=== PATIENT | female | born 1995 | race Caucasian/White ===

== ENCOUNTER 2025-03-03 02:45 | Inpatient (IN) | payer BC, OTHER, SELFPAY ==
[2025-03-03] VITALS (135 sets, daily range): BP systolic 92–225; BP diastolic 49–205; PULSE 37–180; RESP 18; TEMP 36.3–37.2; O2SAT 84–100; BMI 37.8
--- OUTSIDE RECORDS SUMMARY | 2025-03-03 03:19 | XMS_ITS | Data Portability ---
Author Organization [facility] Address [address] [place] [address] Assessment Encounter Date Assessment Date Assessment LastModified by Organization Details LastModified Time 02/20/2025 02/20/2025 Patient is __36_weeks . Discussed plan. Not available 02/20/2025 10:33:59 02/27/2025 02/27/2025 Patient is _36__weeks . Discussed plan. [email or web address] Not available 02/27/2025 12:37:21 Plan of Treatment Reminders Order Date Submit Date Provider Last Modified By Organization Details Last Modified Time Details Appointments U/S OB BPP 2024 08:30A M ULTRASOUND Not available Not available Not available NST 2024 09:00A M NST SCHEDULE Not available Not available Not available OB ROUTINE 2024 09:30A M Lisa Miguel CNM Not available Not available Not available U/S OB BPP 2024 08:00A M ULTRASOUND Not available Not available Not available NST 2024 08:30A M NST SCHEDULE Not available Not available Not available OB ROUTINE 2024 09:00A M Lisa Miguel CNM Not available Not available Not available SURG CSectio n 2024 07:30A Dara RUELAS MD Not available Not available Not available SURG POST OP 2024 01:30P Dara RUELAS MD Not available Not available Not available Lab None recorde d. Referral None recorde d. Procedures None recorde d. Surgeries None recorde d. Imaging non-str ess test 2024 025 [email or web address] [address], [address], [place], [address], 02/28/2025 08:38:25 US, obstetr ic, biophys ical profile + non-str ess test 2024 025 [email or web address] [place], [address], [place], [address], 02/27/2025 22:02:45 US, obstetr ic, follow- up 2024 025 [email or web address] [place], [address], [place], [address], 02/09/2025 17:42:59 Medication Orders None recorde d. Patient TargetsNo targets recorded. Patient InstructionsNo instructions recorded. Reason for Referral None Reported. Results Created Date Observation Date Name Description Value Unit Range Abnormal Flag Note LastModifiedBy Organization Detail LastModifiedTime 02/21/2002/20/2025 CULTU RE: GROUP B STREP SCREE N, REFLE X SUSCE PTIBI LITY result report SEE RESULT S BELOW Test: Cultu re: Group B Strep , Refle x Susce ptibi lity ([facility] ) Speci men Sourc e: Vagin a/Rec page Speci men Type: Vagin al/Re ctal Speci men Date: 1006 Resul t Date: 1356 Resul t Statu s: Final resul t Abnor mal: No Resul ting Lab: [facility] [address] [facility] [address] Tel: CULTU RE ----- ----- ----- --- No Group B strep isola roque at 2 days (jennifer ctive broth enhan cemen t) Not Available [facility] (Lab) [address], [place], [address], 02/23/2025 14:59:46 02/10/20 02/09/2025 US, obste tric, follo w-up No observ ation record ed. [email or web address] [place] [address], [place], [address], 02/09/2025 13:30:13 02/10/20 25 02/09/2025 US, obste tric, follo w-up No observ ation record ed. [address], [place], [address], 02/20/2025 17:08:37 02/28/2002/27/2025 US, obste tric, follo w-up No observ ation record ed. [email or web address] [address], [place], [address], 03/01/2025 11:29:31 02/28/20 25 02/27/2025 US, obste tric, bioph ysica l profi le + non-s tress test No observ ation record ed. [email or web address] [place] [address], [place], [address], 02/27/2025 12:02:49 02/28/2002/27/2025 non-s tress test No observ ation record ed. [email or web address] [place] [address], [place], [address], 02/27/2025 13:59:00 02/28/20 non-s tress test No observ ation record ed. [place] [address], [place], [address], 02/27/2025 14:02:00 Result Notes None recorded. Problems Name Problem SNOMED Code Status Onset Date Resolution Date Notes Provider Name and Address Organization Details Recorded Time Mixed anxiety and depressiv e disorder 312109094 Active 2023 Catherine Marcelino [facility] [place] - [facility] 4 15:29:10 50768983 Active 2023 Catherine christiansen, [facility] 4 15:34:55 Infection by Trichomon as 53168462 Active tx flagyl 09/08/24 Lisa Miguel CNM [address], [place], [address], [facility] 4 15:40:31 Anxiety 89558870 Active wellbutri n 300mg daily Lisa Miguel CNM [address], [place], [address], [facility] 5 14:40:32 Low lying placenta 071497704 Active pelvic rest, [facility] LIZY BREWER MD [address], [place], [address], [facility] 5 23:59:28 Body mass index 30+ - obesity 626835083 Active antental testing @ 37wks Rossana Lee [facility], [facility] 5 16:03:02 Body mass index 30+ - obesity 856309687 Active antental testing @ 37wks [facility] 16:03:01 Problem Notes None recorded. Procedures Surgical History Date Name Laterality Status Provider Name and Address Organization Details Recorded Time 4 Date of Last Pap Smear completed Catherine Marcelino [facility] 09/08/2024 15:29:26 2 Other completed Catherine Marcelino [facility] 09/08/2024 15:33:49 1 Breast Surgery completed Catherine Marcelino [facility] 09/08/2024 15:28:05 1 Breast Biopsy completed Catherine Marcelino [facility] 09/08/2024 15:28:05 8 extraction of wisdom tooth completed Catherine Marcelino [facility] 09/08/2024 15:34:03 Imaging Results Imaging Date Name Status LastModified by Organiz ation Details LastModified Time 02/09/2025 US, obstetric, follow-up completed [facility] [place] [address], [place], [address], 02/09/2025 13:30:13 02/09/2025 US, obstetric, follow-up completed [email or web address] [address], [place], [address], 02/20/2025 17:08:37 02/27/2025 US, obstetric, follow-up completed [email or web address] [address], [place], [address], 03/01/2025 11:29:31 02/27/2025 US, obstetric, biophysical profile + non-stress test completed [facility] [place] [address], [place], [address], 02/27/2025 12:02:49 02/27/2025 non-stress test completed [email or web address] [place] [address], [place], [address], 02/27/2025 13:59:00 02/27/2025 non-stress test completed [email or web address] [place] [address], [place], [address], 02/27/2025 14:02:00 Procedure Notes None recorded. Medical Equipment None Reported. Allergies No known drug allergies Medications Name Sig Start Date Stop Date Status Note LastModified by Organization Details LastModified Time fluconazole 150 mg tablet TAKE 1 TABLET BY MOUTH NOW. REPEAT IN 7 DAYS IF SYMPTOMS PERSIST 09/08 completed Not Available Not Available Not Available ondansetron HCl 4 mg tablet 01/10 completed Not Available Not Available Not Available metronidazo le 500 mg tablet take 4 tabs once 11/01 completed Not Available Not Available Not Available alprazolam 0.25 mg tablet 09/08 completed Not Available Not Available Not Available sertraline 25 mg tablet 09/08 completed Not Available Not Available Not Available mupirocin 2 % topical ointment APPLY TOPICALLY TO THE AFFECTED AREA THREE TIMES DAILY active Not Available Not Available No t Available methylpredn isolone 4 mg tablets in a dose pack FOLLOW PACKAGE DIRECTION S 09/08 completed Not Available Not Available Not Available phentermine 37.5 mg capsule 09/08 completed Not Available Not Available Not Available amoxicillin 875 mg-potassiu m clavulanate 125 mg tablet TAKE 1 TABLET BY MOUTH TWICE DAILY FOR 10 DAYS active Not Available Not Available No t Available cholecalcif fantasma (vitamin D3) 25 mcg (1,000 unit) capsule TAKE 1 CAPSULE BY MOUTH DAILY 09/08 completed Not Available Not Available Not Available escitalopra m 20 mg tablet 09/08 completed Not Available Not Available Not Available cyclobenzap rine 5 mg tablet 09/08 completed Not Available Not Available Not Available bupropion HCl XL 300 mg 24 hr tablet, extended release TAKE 1 TABLET BY MOUTH EVERY DAY active Not Available Not Available No t Available bupropion HCl XL 150 mg 24 hr tablet, extended release TAKE 1 TABLET BY MOUTH EVERY DAY 01/24 completed Not Available Not Available Not Available Tri-Sprinte c (28) 0.18 mg(7)/0.215 mg(7)/0.25 mg(7)-0.035 mg tablet TAKE 1 TABLET BY MOUTH EVERY DAY 09/08 completed Not Available Not Available Not Available 28 mg iron-800 mcg tablet TAKE 1 TABLET BY MOUTH EVERY DAY active Not Available Not Available No t Available Zepbound 5 mg/0.5 mL subcutaneou s pen injector ADMINISTE R 5 MG UNDER THE SKIN EVERY 7 DAYS 09/08 completed Not Available Not Available Not Available Zepbound 2.5 mg/0.5 mL subcutaneou s pen injector ADMINISTE R 2.5 MG UNDER THE SKIN EVERY 7 DAYS 09/08 completed Not Available Not Available Not Available Vitals Date Recorded Body weight Body mass index (BMI) Body height Systolic blood pressure Diastolic blood pressure Provider Name and Address Organization Details Last Updated DateTime 02/09/2025 64829.32 14 g 37.2 kg/m2 163.83 cm 114 mm[Hg] 79 mm[Hg] Catherine Marcelino [facility] 5 11:38:22 Date Recorded Body weight Body mass index (BMI) Body height Systolic blood pressure Diastolic blood pressure Provider Name and Address Organization Details Last Updated DateTime 02/20/2025 469741.6 9088 g 37.9 kg/m2 163.83 cm 119 mm[Hg] 79 mm[Hg] Catherine Marcelino [facility] 5 10:33:23 Date Recorded Body weight Body mass index (BMI) Body height Body height Body mass index (BMI) Body weight Systolic blood pressure Diastolic blood pressure Systolic blood pressure Diastolic blood pressure Provider Name and Address Organization Details Last Updated DateTime 5 796590. 27620 g 37.5 kg/m2 163.83 cm 163.83 cm 37.5 kg/m2 249675. 51 g 108 mm[Hg] 70 mm[Hg] 108 mm[Hg] 70 mm[Hg] Catherine Marcelino [facility] 13:57:27 Social History Question Answer Notes LastModified by Organizat ion Details LastModified Time Tobacco Smoking Status Never Smoker Catherine Marcelino [facility], [facility] 09/08/2024 15:33:04 If You Are , What Was Your Level Of Alcohol Consumption Prior To ? Occasional [email or web address] Information not available 09/08/2024 Are You Blind Or Do You Have Difficulty Seeing? No [email or web address] Information n ot available 09/08/2024 What Is Your Level Of Caffeine Consumption? Moderate [email or web address] Information not available 09/08/2024 In The 14 Days Before Symptom Onset, Have You Had Close Contact With A Laboratory-confirm ed COVID-19 While That Case Was Ill? No [email or web address] Information n ot available 09/08/2024 In The 14 Days Before Symptom Onset, Have You Had Close Contact With A Person Who Is Under Investigation For COVID-19 While That Person Was Ill? No [email or web address] Information not available 09/08/2024 Have You Been To An Area Known To Be High Risk For COVID-19? No [email or web address] Information not available 09/08/2024 Are You Deaf Or Do You Have Serious Difficulty Hearing? No [email or web address] Information not available 09/08/2024 What Type Of Diet Are You Following? REGULAR [email or web address] Information n ot available 09/08/2024 Do You Use Your Seat Belt Or Car Seat Routinely? Yes [email or web address] Information not available 09/08/2024 Do You Have Smoke And Carbon Monoxide Detectors In Your Home? Yes [email or web address] Information not available 09/08/2024 Do You Use Sunscreen Routinely? Yes [email or web address] Information not available 09/08/2024 Has Tobacco Cessation Counseling Been Provided? No [email or web address] Information not available 09/08/2024 Do You Have Difficulty Walking Or Climbing Stairs? No Information not available 09/08/2024 Sex: Unknown Functional Status Question Answer Note LastModified by Organizat ion Details LastModified Time Do you use any illicit or recreational drugs? No [email or web address] Information not available 09/08/2024 Do you or have you ever used any other forms of tobacco or nicotine? No [email or web address] Information not available 09/08/2024 What is your level of alcohol consumption? None Information not available 09/08/2024 Are you able to walk? YESWOREST Information not available 09/08/2024 Are you able to care for yourself? Yes [email or web address] Information n ot available 09/08/2024 Do you have difficulty dressing or bathing? No [email or web address] Information not available 09/08/2024 What is your exercise level? Occasional [email or web address] Information not available 09/08/2024 Mental Status Question Answer Note LastModified by Organization D etails LastModified Time Do you feel stressed (tense, restless, nervous, or anxious, or unable to sleep at night)? [id number] [email or web address] Information not available 09/08/2024 Family History Nothing Reported. Medical History Condition Response Allergies (Food, seasonal, environmental ) N Other N Drug/Latex Allergies/Reactions N Blood Transfusion N Breast Cancer N Dermatologic Disorders N Lung Disease N Defects or Inherited Disease N Breast Problem Y Gestational Diabetes N Hematologic disorders N Anesthesia Complications N History of STI Y Deep Vein Thrombosis N Polycystic ovary syndrome N Anxiety Disorder Y Autoimmune disease N Arthritis N Polyps N Infertility N Acid Reflux (GERD) N History of abnormal pap N Cancer N Varicosities N Stroke N Neurologic/Epilepsy N Endometriosis N High Cholesterol N Fibromyalgia N Headaches N Kidney Disease N Heart Problems N Thyroid Problems N Kidney or Bladder Problems N GI Problems N Eating Disorder N Anemia N Art (IVF or FET) N Psychiatric Illness N Ovarian Cancer N Diabetes N Pulmonary (TB, Asthma) N Hepatitis/Liver Disease N No Past Medical History N Eczema N Urinary Tract Infection N Abuse/Domestic Violence N Asthma N Trauma/Violence N Depression/ depression Y Heart Disease N Pre-Eclampsia N Hypertension N Osteoporosis N Thrombophilias N Gynecological History Statement/Question Response Abnormal Pap N Date of Last Colonoscopy Date of Last Mammogram Date of LMP 06/16/2024 STIs/STDs Y Date of DEXA bone scan Date of Last Pap Smear 03/30/2024 Current Control Method LMP Approximate Obstetrics History GPAL:G 1 P 0 0 0 0 Type Value Living 0 Total 1 Past Encounters Encounter ID Performer Location Encounter Start Date Encounter Closed Date Diagnosis/Indication Diagnosis SNOMED-CT Code Diagnosis ICD10 Code Diagnosis Note [id number] Frank Ruelas MD [place] [address] [address] 09/08/2024 12:03:21 09/08/2024 13:52:13 screening 896561397 Z36.87 Z3A.12 [id number] [facility] [address] [address] 09/08/2024 14:35:51 09/08/2024 15:47:58 Infection by Trichomonas 83302343 A59.9 Mixed anxi ety and depressive disorder 673984540 F41.8 Gestation period, 12 weeks 02061524 Z3A.12 [id number] Frank Ruelas MD [place] [address] [address] 09/19/2024 12:21:50 09/19/2024 13:25:59 screening 555409962 Z36.82 Z3A.13 [id number] [facility] [address],[place] [address] 10/06/2024 11:49:41 10/06/2024 12:40:39 Gestation period, 16 weeks 88585333 Z3A.16 [id number] Frank Ruelas MD [place] [address],[place] [address] 11/01/2024 11:23:36 11/01/2024 12:36:16 screening for malformation 761479206 Z36.3 Z3A.19 [id number] [facility] [address],[place] [address] 11/01/2024 11:23:53 11/01/2024 14:12:12 Gestation period, 19 weeks 66940822 Z3A.19 [id number] Frank Ruelas MD [place] [address],[place] [address] 11/29/2024 10:55:08 11/29/2024 12:03:03 Low lying placenta 867274054 O44.42 O35.8XX0 Z3A.23 [id number] LIZY BREWER MD [place] [address],[place] [address] 11/29/2024 10:55:21 11/30/2024 09:40:05 Routine care 051742568 Z34.02 [id number] LIZY BREWER MD [place] [address],[place] [address] 12/18/2024 13:52:43 12/18/2024 15:13:47 Irregular uterine contractions 39106622 O62.2 - worsening since Wednesday- no bleeding- good movement- likely growing pains vs BH contractio ns- no signs of PTL on exam- will send urine to r/o UTI- will measure for belly band today [id number] [facility] [address],[place] [address] 12/27/2024 09:34:49 12/27/2024 10:05:44 Gestation period, 27 weeks 04546162 Z3A.27 [id number] Lisa Miguel [facility] [address],[place] [address] 01/10/2025 09:55:55 01/10/2025 10:38:19 Gestation period, 29 weeks 17053333 Z3A.29 Anxiety 40674027 F41.9 [id number] Lisa Miguel [facility] [address],[place] [address] 01/24/2025 14:07:06 01/24/2025 14:44:26 Gestation period, 31 weeks 07108974 Z3A.31 [id number] Frank Ruelas MD [place] [address],[place] [address] 02/09/2025 11:07:11 02/09/2025 11:43:11 Obesity 453595149 O99.213 O36.63X0 Z3A.34 [id number] Lisa Miguel [facility] [address],[place] [address] 02/09/2025 11:07:32 02/12/2025 00:49:08 Gestation period, 34 weeks 39961536 Z3A.34 [id number] Lisa Miguel [facility] [address],[place] [address] 02/20/2025 10:10:27 02/20/2025 11:16:34 Gestation period, 36 weeks 74817821 Z3A.36 [id number] Frank Ruelas MD [place] [address],[place] [address] 02/27/2025 10:53:16 02/27/2025 11:51:10 Obesity 616170689 O99.210 Z3A.36 [id number] Lisa Miguel [facility] [address],[place] [address] 02/27/2025 10:53:41 02/27/2025 14:15:49 Body mass index 30+ - obesity 737565206 E66.9 [id number] Lisa Miguel, [facility] [address] [address] 02/27/2025 10:53:51 02/27/2025 12:38:19 Gestation period, 36 weeks 18333949 Z3A.36 Health Concerns Section Related Observation LastModified by Organization Detai ls LastModified Time None Recorded Concern Status LastModified by Organization Details LastModified Time None Recorded Advance Directives Directive None Recorded Payers Encounter Date Sequence Insurance Name Policy Number Policy [place] Covered Member ID [place] Member ID Guarantor Name 02/09/2025 2 R [id number] Efren Carroll [id number] Tarah Carroll 02/09/2025 1 [place] [id number] Tarah Carroll [id number] Tarah Carroll 02/20/2025 2 R [id number] Efren Carroll [id number] Tarah Carroll 02/20/2025 1 [place] [id number] Tarah Carroll [id number] Tarah Carroll 02/27/2025 2 R [id number] Efren Carroll [id number] Tarah Carroll 02/27/2025 1 [place] [id number] Tarah Carroll [id number] Tarah Carroll 02/27/2025 2 R [id number] Efren Carroll [id number] Tarah Carroll 02/27/2025 1 [place] [id number] Tarah Carroll [id number] Tarah Carroll 02/27/2025 2 R [id number] Efren Carroll [id number] Taarh Carroll 02/27/2025 1 [place] [id number] Tarah Carroll [id number] Tarah Carroll OBGyn Episode Ob Episode Information Episode Created Date Number of Fetuses Patient Bloodtype Patient rh Status Prepregnancy Weight lbs Domestic Partner Domestic Partner Phone Father Name Dietary Cook Status 09/08/20 24 1 O Positive Vito Carroll OPEN Fetus Data First Name Last Name Admitted to NICU Weight (g) Sex Living Outcome Pediatric Complications Fetus ID Race Codes Race Delivery Type [id number] Problems Problem Notes EIF seen in [facility] us at 3 2wks Problem Name Start Date End Date Resolution Snomed Code Not e Infection by Trichomonas [id number] tx flagyl 09/08 Anxiety 89808651 wellbutrin 300mg daily Body mass index 30+ - obesity 116776427 antental testin g @ 37wks Chad Calculation Initial Chad Date Initial Exam Date Initial Exam Provider Initial Ultrasound Date Last Menstrual Period Date Ultra Sound Weeks Gestation 03/23/2025 08/18/2024 08/18/2024 06/16/2024 9 Eighteen To Twenty Week Chad Update Ultra Sound Date Fundal Height At Umbil Quickening Date Ultra Sound Latest Weeks Gestation Final Chad Confirmed By Final Chad Confirmed Date Final Chad Date Ultra Sound Latest Days Gestation 0 0 Pre-harris Flowsheet Flowsheet Date 09/08/2024 Raymundo Score Blood Edema Fundus Height Fundus Units Glucose Ketones Leukocytes Nitrite Labor Signs Protein Cervic Dilation Cervic Effacement Cervic Station neg none Type Weight in lbs Pre/Post Dialysis Refused Weight 212.626658514643 BP Diastolic BP Location Tested BP Systolic BP Type 85 120 Fetus Heart Rate Present Fetus Movement A No Comments transfer of care, previous o ffice would not treat trich until 12 weeks, called to pharmacy, was treated. stopped her wellbutrin did not wean, office wanted her to start sertraline did not start. wellbutrin works great and she had been doing well on it , discussed risk with , risk of untreated anxiety/depression. will restart wellbutrin at 150mg and increase in 4 weeks as needed.reviewed records, begin routine care Flowsheet Date 09/19/2024 Raymundo Score Blood Edema Fundus Height Fundus Units Glucose Ketones Leukocytes Nitrite Labor Signs Protein Cervic Dilation Cervic Effacement Cervic Station Type Weight in lbs Pre/Post Dialysis Refused BP Diastolic BP Location Tested BP Systolic BP Type Fetus Heart Rate Present Fetus Movement Comments Flowsheet Date 10/06/2024 Raymundo Score Blood Edema Fundus Height Fundus Units Glucose Ketones Leukocytes Nitrite Labor Signs Protein Cervic Dilation Cervic Effacement Cervic Station neg none Type Weight in lbs Pre/Post Dialysis Refused 210.544867471004 BP Diastolic BP Location Tested BP Systolic BP Type 85 L arm 126 sitting Fetus Heart Rate Present A 156 Present Fetus Movement A No Comments Patient c/o of having a lot of lower pressure and cramping. discussed signs and sxs, will yuko for trich, increased anxiety at work, does not want to increase wellbutrin yet will discuss after anatomy scan f/u 4 weeks Flowsheet Date 11/01/2024 Raymundo Score Blood Edema Fundus Height Fundus Units Glucose Ketones Leukocytes Nitrite Labor Signs Protein Cervic Dilation Cervic Effacement Cervic Station Type Weight in lbs Pre/Post Dialysis Refused BP Diastolic BP Location Tested BP Systolic BP Type Fetus Heart Rate Present Fetus Movement Comments Flowsheet Date 11/01/2024 Raymundo Score Blood Edema Fundus Height Fundus Units Glucose Ketones Leukocytes Nitrite Labor Signs Protein Cervic Dilation Cervic Effacement Cervic Station neg none Type Weight in lbs Pre/Post Dialysis Refused 211.111803111204 BP Diastolic BP Location Tested BP Systolic BP Type 72 120 Fetus Heart Rate Present Fetus Movement A No Comments LLP reviewed US, precautions and education, f/u 4 weeks Flowsheet Date 11/29/2024 Raymundo Score Blood Edema Fundus Height Fundus Units Glucose 696565|[id number]|2025-03-03 18:55:00|2025-03-03 18:55:00|OBPPTRN||||"Patient transferred to post room #111 via w/c. Support person present. Oriented to unit, room, information board, rooming in, admission packet and security measures. Patient verbalizes understanding."
--- OUTSIDE RECORDS SUMMARY | 2025-03-03 03:19 | XMS_ITS | Clinical Summary ---
Author Organization [facility] Address [address] [place] [address] Phone Care Team Providers Care President & Ceo Name Role Phone Yoan Davis APRN, CNP, Shayla Unavailable Leonora Coulter APRN, SHON Primary Care Provide r Allergies No known active allergies Medications Norgestimate-Et hinyl Estradiol 0.18/0.215/0.25 MG-35 MCG Tablet Take 1 Tablet by mouth daily. Active Semaglutide-Doug ght Management (Wegovy) 0.25 MG/0.5ML Solution Auto-injector 0.25 mg by Subcutaneous route once a week. 2 mL 1 3 Active escitalopram (LEXAPRO) 20 MG TabletIndicatio ns:Anxiety TAKE 1 TABLET BY MOUTH EVERY DAY 90 Tablet 3 Active Active Problems Problem Noted Date Diagnosed Date Adjustment disorder 06/23/2022 Positive ERUM (antinuclear antibody) 05/01/2022 Cyst of right ovary 05/01/2022 Anxiety 02/24/2022 Facial rash 02/24/2022 LLQ abdominal pain 02/24/2022 Constipation 02/24/2022 Rosacea 02/24/2022 Immunizations Immunization Administration Dates Next Due DTAP VACCINE 06/03/2001,07/15/1998 DTP-Hib 1997,1997,1997 Hepatitis A Vaccine, Pediatric/adolescent, 2 Dose Schedule 05/15/2011 Hepatitis A Vaccine,unspecif ied Formulation 05/13/2007 Hepatitis B Vaccine, Pediatric/adolescent 1997,1997,1997 Hib Vaccine,unspecified Formulation 07/15/1998 Human Papillomavirus Vaccine (HPV), quadrivalent 05/15/2011 Inactivated Polio Vaccine 06/03/2001 Influenza Vaccine greater than 3 yrs 12/16/2014 Influenza Vaccine,unspecifie d Formulation 10/07/2009 Influenza, Seasonal, Injecta ble, Undefined 12/16/2014 MMR Vaccine 06/03/2001,05/03/1998 Meningococcal Polysaccharide Vaccine (MPSV4) 05/15/2011 Novel [id number], Injectable 10/07/2009 OPV 07/15/1998, 7,1997,06/13 TDAP Vaccine 05/15/2011 Family History Medical History Relation Name Comments Heart Attack Father Hypertension Mother Heart Attack Paternal Grandfather Pacemaker Paternal Grandmother Other-comment Paternal Uncle enlarged hea rt Relation Name Status Comments Father Alive Maternal Grandfather Maternal Grandmother Alive Mother Alive Paternal Grandfather Alive Paternal Grandmother Alive Paternal Uncle Social History Tobacco Use Types Packs/Day Years Used Date Smoking Tobacco: Never Smokeless Tobacco: Never Tobacco Cessation:Counseling Given: Not Answered Alcohol Use Standard Drinks/Week Comments Not Currently 0 (1 standard drink = 0.6 oz pur e alcohol) PHQ-2 Answer Date Recorded Total Score - Questions 1-9 0 0 03/2022 Sexually Active Control Partners Comments Yes Oral Contraceptive Comments No Sex and Gender Information Value Date Recorded Sex Assigned at Not on file Legal Sex Female 10:05 PM CDT Gender Identity Not on file Sexual Orientation Not on file Last Filed Vital Signs Vital Sign Reading Time Taken Comments Blood Pressure 120/70 11/02/2022 11:06 AM LUMP RECEIVER Pulse 100 11/02/2022 11:06 AM LUMP RECEIVER Temperature 36.4 C (97.5 F) 11/02/2022 11:06 AM LUMP RECEIVER Respiratory Rate 16 11/02/2022 11:06 AM LUMP RECEIVER Oxygen Saturation 98% 11/02/2022 11:06 AM LUMP RECEIVER Inhaled Oxygen Concentration - - Weight 96.6 kg (213 lb) 11/02/2022 11:06 AM LUMP RECEIVER Height 162.6 cm (5' 4 ) 11/02/2022 11:06 AM LUMP RECEIVER Body Mass Index 36.56 11/02/2022 11:06 AM LUMP RECEIVER Plan of Treatment Health Maintenance Due Date Last Done Comments Hepatitis C Virus (HCV) Screening 1997 Pap Smear 11/18/2023 11/18/2020 Respiratory Syncytial Virus (RSV) Immunization (Adult) (1 - 1-dose 75+ series) 2072 Hepatitis B Immunization Completed 997, 1997, 1997 DTaP/Tdap/Td Immunization Discontinued 2010, 06/03/2001, 07/15/1998, Additional history exists Human Papillomavirus (HPV) Immunization Discontinued 05/15/2011 Meningococcal Immunization (ACWY) Aged Out 05/15/2011 No longer eligible based on patient's age to complete this topic Influenza Immunization Discontinued 5, 12/16/2014, 10/07/2009, Additional history exists Pneumococcal Immunization Combined Aged Out No longer eligible based on patient's age to complete this topic Rotavirus Immunization Aged Out No lo nger eligible based on patient's age to complete this topic SARS-COV-2 Immunization Discontinued Goals Goal Patient Goal Type Associated Problems Recent Progress Patient-Stated? Author To try to think more positive Behavioral Health Yes Livia Myers, PROGRAMMER OPERATOR NUMERICAL CONTROL Note: Goal/Objective: Decrease anxiety. Anticipated Time Frame for Goal Completion: 4 months Goal Reviewed with: patient Readiness to change: Ready to change Department associated with goal: [facility] Steps to achieve goal: will identify at least two coping skills/activities/habits that have helped to manage anxiety in the past. will identify at least three new coping skills/activities/habits that may help to prevent and/or cope with anxiety. 3. will identify a plan to implement coping skills and follow this plan for two weeks and evaluate the impact on anxiety 4. Will attend individual and/or group therapy at least 1x/month at least 6 sessions Insurance [facility] Care Teams President & Ceo Relationship Specialty Start Date End Date Leonora Coulter APRN, STATISTICAL MACHINE SERVICER [address] [place] [address] PCP - General Advanced Practice Nurse 11/29/24 Shayla Milton V COMPUTER FORWARDING SYSTEM MARKUP CLERK, STATISTICAL MACHINE SERVICER [address] [place] [address] [place] [address] Advanced Practice Nurse 07/28/21
--- OUTSIDE RECORDS SUMMARY | 2025-03-03 03:19 | XMS_ITS | Encounter Summary ---
Author Organization [facility] Address [address] [place] [address] Phone Care Team Providers Care Development Advisor Name Role Phone Yoan Davis APRN, SHON, Shayla Unavailable [phone] Sadia Medel MD Primary Care Provider + [phone] Mercedes Hutchison MD Primary Care Provider + [phone] Leonora Coulter APRN, CONSTRUCTION TRENCH DIGGER Primary Care Provide r Reason for Visit * Reason Comments Medication Refill Encounter Details Date Type Department Care Team (Late st Contact Info) Description 05/23/[address] [facility] - Primary Care - [place] [address] [place] [address] Sadia Medel MD [address] [place] [address] Medication Refill Social History Tobacco Use Types Packs/Day Years Used Date Smoking Tobacco: Never Smokeless Tobacco: Never Alcohol Use Standard Drinks/Week Comments Not Currently 0 (1 standard drink = 0.6 oz pur e alcohol) PHQ-2 Answer Date Recorded Total Score - Questions 1-9 0 07/18 Sexually Active Control Partners Comments Yes Oral Contraceptive Comments No Sex and Gender Information Value Date Recorded Sex Assigned at Not on file Legal Sex Female 10:05 PM CDT Gender Identity Not on file Sexual Orientation Not on file COVID-19 Exposure Response Date Recorded In the last 10 days, have yo u been in contact with someone who was confirmed or suspected to have Coronavirus/COVID-19? No / Unsure 05/01/2022 10:57 AM CDT documented as of this encounter Miscellaneous Notes * Telephone Encounter - Ariana Arroyo RN - 05/25/2022 9:00 AM CDT Dose adjustment 05/01/2022 documented in this encounter Plan of Treatment Not on file documented as of this encounter Visit Diagnoses Diagnosis Anxiety Anxiety state, unspecified documented in this encounter Additional Health Concerns Assessment Noted Time PHQ-9 Depression Total Score: 0 07/28/20 21 12:00 PM CDT documented as of this encounter Care Teams Development Advisor Relationship Specialty Start Date End Date Sadia Medel MD [address] [place] [address] PCP - General Family Medicine 02/24/22 11/02/22 Mercedes Hutchison MD [address] [place] [address] PCP - General Family Medicine 11/03/22 11/28/24 Leonora Coulter, DATAPOWER CONSULTANT, CONSTRUCTION TRENCH [place] [address] PCP - General Advanced Practice Nurse 11/29/24 Shayla Milton V, DATAPOWER CONSULTANT, CONSTRUCTION TRENCH DIGGER [place] [address] Advanced Practice Nurse 07/28/21 documented as of this encounter
--- OUTSIDE RECORDS SUMMARY | 2025-03-03 03:19 | XMS_ITS | Clinical Summary ---
Author Organization [facility] Address [address] [place] [address] Care Team Providers Care Field Account Manager Name Role Phone Leonora Coulter NP Primary Care Provider [phone] Allergies No known active allergies Medications sertraline (ZOLOFT) 25 mg tablet Take 1 tablet (25 mg total) by mouth daily 90 tablet 4 Active PNV cmb 52-oaxd-DA-omeg a-3-dha 29 mg iron- 1 mg-200 mg combo pack Take by mouth Ac tive buPROPion XL (WELLBUTRIN XL) 300 mg 24 hr tablet 5 Active mupirocin (BACTROBAN) 2 % ointmentIndicat ions:Minor Bacterial Skin Infections Apply topically 3 (three) times a day 22 g 5 Active amoxicillin-cla vulanate (AUGMENTIN) 875-125 mg per tablet Take 1 tablet by mouth 2 (two) times a day for 10 days 20 tablet 5 02/28/20 25 Active Problems Problem Noted Date Diagnosed Date KEY (generalized anxiety disorder) 02/11/2024 Assessment & Plan (07/20/2024 3:34 PM CDT): Patient is currently ; would like to change medications to floor risk medication for Discussed with patient risks and benefits of treatment with SSRI; patient has agreeable to continue; will start sertraline 25 mg daily, adjust dose every 7-14 days as needed Assessment & Plan (04/12/2024 2:46 PM CDT): Chronic, stable, well controlled Weaned herself off Lexapro Continue Wellbutrin 300 mg daily Assessment & Plan (02/11/2024 8:20 AM CDT): Chronic, stable, currently well controlled Has not taken any Xanax Is doing well on Lexapro; would like to increase Wellbutrin Continue Lexapro 20 mg daily and increase Wellbutrin 300 mg daily Follow up 2 months Recurrent major depressive disorder, in remiss n 10/11/2022 Assessment & Plan (04/12/2024 2:46 PM CDT): Chronic, stable, well controlled Weaned herself off Lexapro Continue Wellbutrin 300 mg daily Assessment & Plan (02/11/2024 8:21 AM CDT): Chronic, stable, currently well controlled Has not taken any Xanax Is doing well on Lexapro; would like to increase Wellbutrin Continue Lexapro 20 mg daily and increase Wellbutrin 300 mg daily Follow up 2 months Class 2 obesity due to exces s calories with body mass index (BMI) of 39.0 to 39.9 in adult 10/11/2022 Assessment & Plan (04/12/2024 2:47 PM CDT): Continues to struggle with weight loss Has tried Wellbutrin and Phentermine Continue making healthy dietary choices and exercise Zepbound 2.5 mg SubQ weekly Anxiety 02/24/2022 Estimated Date of Delivery Comme nts Yes 03/23/2025 Resolved Problems Problem Noted Date Diagnosed Date Resolved Date Cellulitis of buttock 01/20/20232023 Open wound of genital labia 11/05/2022 11/10/2022 Abscess packing removal 10/29/2022 04/0 02/2023 Assessment & Plan (10/29/2022 10:22 AM FIELD ADJUSTER): Packing removed will be replaced by after shower at home rtc next week Abscess of genital labia 10/12/202209/2023 Assessment & Plan (10/22/2022 11:17 AM FIELD ADJUSTER): Continue 10/21 packing, nearly healed rtc next week Cellulitis of other specified site 10/11/2022 10/22/2022 Elevated blood pressure read ing without diagnosis of hypertension 10/11/2022 12/22/2023 Hypokalemia 10/11/2022 12/22/2023 Bacteriuria 10/11/2022 12/22/2023 Lupus 10/11/2022 12/22/2023 Encounters Date Type Department Care Team Description 03/01/2025 Telephone [facility] [address] [place] [address] Leonora Coulter NP Referral Request 02/17/2025 11:15 AM CDT Office Visit [facility] [address] [facility] [place] [address] Pia Givens NP Need for Tdap vaccination (Primary Dx); Bacterial skin infection from Last 3 Months Immunizations Immunization Administration Dates Next Due DTP / HiB 1997,1997,1997 DTaP 06/03/2001,07/15/1998 H1N1 Inj 10/07/2009 HPV, Quadrivalent 05/15/2011 Hep A, Pediatric 05/15/2011 Hep A, Unspecified 05/13/2007 Hep B, Adolescent or Pediatric 1997,1996,1997 HiB 07/15/1998 IPV 06/03/2001 Influenza, Trivalent, IM (MDV) 12/16/2014 Influenza, Unspecified 07/20/2024(Deferr ed: Patient Refused),01/17/2024(Deferred: Patient Refused),08/19/2023(Deferred: Patient Refused),08/19/2023(Deferred: Patient Refused),07/18/2023(Deferred: Patient Refused),07/18/2022(Deferred: Patient Refused),07/18/2022(Deferred: Patient Refused),07/18/2022(Deferred: Patient Refused),12/16/2014,10/07/2009, 009,05/13/2007,07/15/1998 MMR 06/03/2001,05/03/1998 Meningococcal Polysaccharide (Menomune) 05/15/2011 OPV 07/15/1998, 7,1997,06/13 Tdap 02/17/2025,05/15/2011 Surgical History Surgery Date Site/Laterality Comments BREAST BIOPSY 01/15/2021 Right BREAST EXCISIONAL BIOPSY 03/12/2021 Right Fibroadenoma ABCESS DRAINAGE 10/18/2021 - 10/17/2022 Left thigh- started as a pimple and then abcess Medical History Medical History Date Comments Breast lump right Lupus Encounter for recheck of abs cess following incision and drainage 10/13/2022 LEFT LABIA Abscess of left genital labia 10/12/2022 Abscess of genital labia 10/12/2022 Open wound of genital labia 11/05/2022 Abscess packing removal 10/29/2022 07/17/2024 Family History Medical History Relation Name Comments Diabetes Father Heart disease Father Diabetes Mother Hypertension Mother Obesity Mother Relation Name Status Comments Father Alive Mother Alive Social History Tobacco Use Types Packs/Day Years Used Date Smoking Tobacco: Never Smokeless Tobacco: Never Tobacco Cessation:Counseling Given: Not Answered AUDIT-C Answer Date Recorded Q1: How often do you have a drink containing alc ohol? Never 10/11/2022 Average Number of Drinks Not on file 022 Q3: How often do you have si x or more drinks on one occasion? Never 10/11/2022 PHQ-2 Answer Date Recorded PHQ-2 Total Score (If total score is 3 or more points, staff should administer the PHQ-9) 0 04/12/2024 Personal Safety Answer Date Recorded Getting School Help Needed Denies 09/28 Estimated Date of Delivery Comme nts Yes 03/23/2025 Sex and Gender Information Value Date Recorded Sex Assigned at Not on file Legal Sex Female 1:58 PM FIELD ADJUSTER Gender Identity Female 07/14/2022 9:03 AM CDT Sexual Orientation Not on file Obstetrics History Para Term AB IAB SAB Ectopic Multiple Livin g Live Births 1 Date Outcome GA Total Labor Labor/2nd/3rd Weight Sex Type Anes PTL Yanet A1 A5 Name Clin Current Last Filed Vital Signs Vital Sign Reading Time Taken Comments Blood Pressure 118/80 02/17/2025 11:55 AM CDT Pulse 106 02/17/2025 11:55 AM CDT Temperature 36.8 C (98.2 F) 02/17/2025 11:55 AM CDT Respiratory Rate 22 02/17/2025 11:55 AM CDT Oxygen Saturation 98% 02/17/2025 11:55 AM CDT Inhaled Oxygen Concentration - - Weight 101.2 kg (223 lb) 02/17/2025 11:55 AM CDT Height 165.1 cm (5' 5 ) 02/17/2025 11:55 AM CDT Body Mass Index 37.11 02/17/2025 11:55 AM CDT Plan of Treatment Health Maintenance Due Date Last Done Comments Cervical Cancer Screening 1997 Varicella Vaccines (1 of 2 - 13+ 2-dose series) 2010 HPV Vaccines (2 - 2-dose series) 11/15/2011 05/15/2011 Regular Well Visit/Exam 18-64 2015 Depression Screening 04/12/2025 04/12/2024, 02/11/2024, 12/22/2023, Additional history exists Influenza Vaccine (Season Ended) 2025 12/16/2014, 12/16/2014, 10/07/2009, Additional history exists DTaP/Tdap/Td Vaccine (8 - Td or Tdap) 02/17/2035 02/17/2025, 05/15/2011, 06/03/2001, Additional history exists Hepatitis B Screening Completed 1997 , 1997, 1997 Hepatitis C Screening Completed 03/20/2024 Pneumococcal vaccine <65 Aged Out No longer eligible based on patient's age to complete this topic Medical Devices Implanted Type Area Assignment Manager Device Identifier Shelf Expiration Date Model / Serial / Lot Bard Peripheral Vascular [id number] Ultraclip Bard 17ga 10cm 2 Trigger Permanent Ultrasound - [id number] - [id number] Implanted:Qty: 1 on 01/15/2021 by Rudi Smith MD at [facility] Breast Right: Breast [employer] Peripheral V[employer] 06/14/2023 [id number] / [id number] / Procedures Procedure Name Priority Date/Time Associated Diagnosis Comments HEPATITIS C ANTIBODY Routine 03/20/2024 8:56 AM CDT Need for hepatitis C screening test from Last 3 Months or Most Recently Relevant to Health Maintenance Results * Hepatitis C antibody Blood (03/20/2024 8:56 AM CDT) Hep C Ab Nonreactive Nonreactive Comment: Interpretive Data Nonreactive: Antibodies to HCV not detected. Does NOT exclude the possibility of recent exposure to HCV. Equivocal: Equivocal for HCV antibodies. Supplemental molecular testing will be automatically performed to determine infection status in accordance with current CDC screening recommendations. Reactive: Positive for HCV antibodies. This may represent current or past HCV infection. Supplemental molecular testing will be automatically performed to determine current infection status in accordance with current CDC screening recommendations. Interpretive data was last revised on 2020. Testing performed by: [facility], [address] [place] [address]., [id number] Blood 03/20/2024 8:56 AM CDT 03/20/2024 12:42 PM CDT Leonora Coulter NP LAB MICROBIOLOGY - GENERAL ORDER CARLOS Final Result Performing Organization Address City/State/[facility] Co de Phone Number [facility] ([place]) [address] [facility] Department [place] [address] from Last 3 Months or Most Recently Relevant to Health Maintenance Insurance [employer] [place] [facility] Address: [address] [place] [address] [place] [address] Advance Directives For more information, please contact: [phone] * Full Code (Latest Code Status on File) Date Activated Date Inactivated Comments 10/11/2022 8:18 PM 10/14/2022 4:06 PM Healthcare Agents on File Name Relationship Healthcare Agent [facility] p Communication Bruce Carroll Spouse First Alternate Health Care Agent [email or web address] Care Teams Field Account Manager Relationship Specialty Start Date End Date Leonora Coulter NP PCP - General Family Medicine 02/16/23
--- OUTSIDE RECORDS SUMMARY | 2025-03-03 03:19 | XMS_ITS | Encounter Summary ---
Author Organization [facility] Address [address] [place] [address] Phone Care Team Providers Care Automotive Fuel Injection Servicer Name Role Phone Yoan Davis APRN, SHON, Shayla Unavailable Sadia Medel MD Primary Care Provider + [phone] Mercedes Hutchison MD Primary Care Provider + [phone] Leonora Coulter APRN, CHEF INSTRUCTOR Primary Care Provide r Reason for Visit * Reason Comments Medication Refill Encounter Details Date Type Department Care Team (Late st Contact Info) Description 07/28/2022 Refill [facility] - Primary Care - [place] [address] [place] [address] Sadia Medel MD [address] [place] [address] Medication Refill Social History Tobacco Use Types Packs/Day Years Used Date Smoking Tobacco: Never Smokeless Tobacco: Never Alcohol Use Standard Drinks/Week Comments Not Currently 0 (1 standard drink = 0.6 oz pur e alcohol) PHQ-2 Answer Date Recorded Total Score - Questions 1-9 0 09/0 03/2022 Sexually Active Control Partners Comments Yes Oral Contraceptive Comments No Sex and Gender Information Value Date Recorded Sex Assigned at Not on file Legal Sex Female 10:05 PM CDT Gender Identity Not on file Sexual Orientation Not on file documented as of this encounter Miscellaneous Notes * Telephone Encounter - Ariana Arroyo RN - 07/28/2022 7:56 AM CDT Medication failed the protocol, provider to review and approve the medication order if appropriate. Requested Prescriptions Pending Prescriptions Disp Refills escitalopram (LEXAPRO) 10 MG Tablet [Pharmacy Med Name: ESCITALOPRAM 10 MG TABLET] 90 Tablet 0 Sig: TAKE 1 TABLET BY MOUTH EVERY DAY SSRI (6 Month Refill Only) Protocol Failed - 07/28/2022 12:38 AM Failed - Patient has established therapy with SSRI for at least 6 months Passed - No test in the past 12 months or most recent test was negative Passed - No active on record Passed - Visit with relevant provider in past 6 months or upcoming 90 days Recent Visits Date Type Provider Dept 05/01/22 Office Visit Sadia Medel MD [facility] 02/24/22 Office Visit Sadia Medel MD [facility] Showing recent visits within past 182 days and meeting all other requirements Future Appointments No visits were found meeting these conditions. Showing future appointments within next 90 days and meeting all other requirements Passed - Has an encounter in the past 6 months with a depression, anxiety, adjustment disorder, OCD, or PTSD visit diagnosis documented in this encounter Plan of Treatment Not on file documented as of this encounter Goals Goal Patient Goal Type Associated Problems Recent Progress Patient-Stated? Author To try to think more positive Behavioral Health Yes Livia Myers, MASTER PLUMBER Note: Goal/Objective: Decrease anxiety. Anticipated Time Frame for Goal Completion: 4 months Goal Reviewed with: patient Readiness to change: Ready to change Department associated with goal: [facility] Steps to achieve goal: [...] at least 1x/month at least 6 sessions documented as of this encounter Visit Diagnoses Diagnosis Anxiety Anxiety state, unspecified documented in this encounter Additional Health Concerns Assessment Noted Time PHQ-9 Depression Total Score: 0 07/28/20 21 12:00 PM CDT documented as of this encounter Care Teams Automotive Fuel Injection Servicer Relationship Specialty Start Date End Date Sadia Medel MD [address] [place] [address] PCP - General Family Medicine 02/24/22 11/02/22 Mercedes Hutchison MD [address] [place] [address] PCP - General Family Medicine 11/03/22 11/28/24 Leonora Coulter, SALES HUNTER, CHEF INSTRUCTOR [address] [place] [address] PCP - General Advanced Practice Nurse 11/29/24 Shayla iMlton V, SALES HUNTER, CHEF INSTRUCTOR [address] [place] [address] [address] [place] [address] Advanced Practice Nurse 07/28/21 documented as of this encounter
--- OUTSIDE RECORDS SUMMARY | 2025-03-03 03:19 | XMS_ITS | Referral Summary ---
Author Organization [facility] Address [address] [place] [address] Care Team Providers Care Humanities Department Chair Name Role Phone Leonora Coulter NP Primary Care Provider [phone] Encounters Date Type Department Care Team Description 03/01/2025 Telephone Family Physicians [address] [address] Leonora Coulter NP Referral Request 02/17/2025 11:15 AM CDT Office Visit [facility] at [address] [place] [address] Pia Givens NP Need for Tdap vaccination (Primary Dx); Bacterial skin infection from Last 3 Months Allergies No known active allergies Medications sertraline (ZOLOFT) 25 mg tablet Take 1 tablet (25 mg total) by mouth daily 90 tablet 4 Active PNV cmb [id number] a-3-dha 29 mg iron- 1 mg-200 mg [...] a day for 10 days 20 tablet 02/28/20 25 Active Problems Problem Noted Date [...] 02/2023 Assessment & Plan (10/29/2022 10:22 AM ASSISTANT PORTFOLIO MANAGER): Packing removed will be replaced by after shower at home rtc next week Abscess of genital labia 10/12/202209/2023 Assessment & Plan (10/22/2022 11:17 AM ASSISTANT PORTFOLIO MANAGER): Continue 10/21 packing, nearly healed rtc next week Cellulitis of other specified site 10/11/2022 10/22/2022 Elevated blood pressure read ing without diagnosis of hypertension 10/11/2022 12/22/2023 Hypokalemia 10/11/2022 12/22/2023 Bacteriuria 10/11/2022 12/22/2023 Lupus 10/11/2022 12/22/2023 Immunizations Immunization Administration Dates Next Due DTP [...] (Menomune) 05/15/2011 OPV 07/15/1998, 7,1997,06/13 Tdap 02/17/2025,05/15/2011 Social History Tobacco Use Types Packs/Day Years [...] on file Legal Sex Female 1:58 PM ASSISTANT PORTFOLIO MANAGER Gender Identity Female 07/14/2022 9:03 AM CDT Sexual Orientation Not on file Last Filed [...] 02/17/2025 11:55 AM CDT Plan of Treatment Not on file Medical Devices Implanted Type Area Camera Supervisor Device Identifier Shelf Expiration Date Model / Serial / Lot Bard Peripheral Vascular [id number] Ultraclip Bard 17ga 10cm 2 Trigger Permanent Ultrasound - [id number] - [id number] Implanted:Qty: 1 on 01/15/2021 by Rudi Smith MD at [facility] Breast Right: Breast [employer] Peripheral V[employer] 06/14/2023 [id number] / [id number] / Procedures Procedure Name Priority Date/Time Associated [...] last revised on 2020. Testing performed by: [facility], [address] [place] [address]., [id number] Blood 03/20/2024 8:56 AM CDT 03/20/2024 12:42 PM CDT us Leonora Coulter NP LAB MICROBIOLOGY - GENERAL ORDER CARLOS Final Result [facility] ([place]) [address] [facility] [place] [address] from Last 3 Months or Most Recently Relevant to Health Maintenance Insurance [facility] [employer] [facility] Advance Directives For more information, please contact: [phone] * Full Code (Latest Code Status on File) Date Activated Date Inactivated Comments 10/11/2022 8:18 PM 10/14/2022 4:06 PM Healthcare Agents on File Name Relationship [facility] [place] Spouse First Alternate Health Care Agent [email or web address] om Care Teams Humanities Department Chair Relationship Specialty Start Date End Date Leonora Coulter NP PCP - General Family Medicine 02/16/23
--- OUTSIDE RECORDS SUMMARY | 2025-03-03 03:19 | XMS_ITS | Data Portability ---
Author Organization [facility] Address [address] [place] [address] Assessment Encounter Date Assessment Date Assessment LastModified by Organization Details LastModified Time 08/01/2024 08/01/2024 see ob episode. fernstrn Not available 08/01/2024 16:54:09 08/22/2024 08/22/2024 see OB episode fernstrn Not available 08/22/2024 10:40:05 Plan of Treatment Reminders Order Date Submit Date Provider Last Modified By Organization Details Last Modified Time Details Appointments None record ed. Lab urinal ysis, dipsti ck 2023 024 [email or web address] In-Office Order, Internal Use Only DO Not Attach Compendium DO Not Attach Compendium, Do Not Delete/merge, [id number] 10:23:32 CBC w/ auto diff 2023 024 [facility], [address] [place] [address], [place], [address], 4 07:15:49 RPR (rapid plasma reagin ), serum 2023 024 [facility], [address] [place] [address] 2, [place], [address], 4 07:15:55 rubell a IgG Ab, quant immuno assay, serum or plasma 2023 024 [facility], [address] [place] [address] 2, [place], [address], 4 07:15:53 HBsAg (hepat itis B surfac e Ag), EIA, serum 2023 024 [facility], [facility] [address], [address], [place], [address], 4 07:15:54 abo group + rh type, blood 2023 024 [facility], [facility], [address], [place], [address], 4 07:15:51 antibo dy screen , serum or plasma 2023 024 [facility], [facility], [address], [place], [address], 4 07:15:50 HIV 1 + 2, meanin gful use set 2023 024 [facility], [facility], [address], [place], [address], 4 07:15:57 drug screen , urine 2023 024 You.i, [facility], [address], [place], [address], 4 07:15:47 hemogl obin (Hb) electr ophore sis, blood 2023 024 You.i, [facility], [address], [place], [address], 4 07:15:41 varice lla zoster virus IgG Ab, QL, IA, serum 2023 024 [facility], [address], [place], [address], 4 07:15:59 cultur e, urine 2023 024 [facility], [facility], [address], [place], [address], 4 07:16:31 Hepati tis C IgG Ab, qual, serum 2023 [facility], [address] [facility], [address], [place], [address], 4 07:15:43 unlist ed lab - inheri test(R )CF / sma panel 2023 [facility], [address], [place], [address], 4 07:15:46 chlamy zoran tracho matis + neisse burke gonorr hoeae + tricho monas vagina lis rRNA panel, MARC+pr obe 2023 [facility], [address], [place], [address], 4 07:15:04 TSH + free T4, serum 2023 [facility], [address], [place], [address], 4 07:15:45 vitami n D, 25-hyd rufino, total, serum 2023 [facility], [address], [place], [address], 4 07:15:56 pregna ncy test, urine 2023 024 fernstrn In-Office Order, Internal Use Only DO Not Attach Compendium DO Not Attach Compendium, Do Not Delete/merge, [id number] 4 16:33:56 urinal ysis, dipsti ck 2023 024 fernstrn In-Office Order, Internal Use Only DO Not Attach Compendium DO Not Attach Compendium, Do Not Delete/merge, [id number] 4 16:33:57 HCG, intact + beta subuni t, quant, serum or plasma 2023 024 [facility], [address], [place], [address], 4 16:16:14 urinal ysis, dipsti ck 2023 024 bl[facility] In-Office Order, Internal Use Only DO Not Attach Compendium DO Not Attach Compendium, Do Not Delete/merge, [id number] 4 11:35:42 pregna ncy test, urine 2023 024 [facility] In-Office Order, Internal Use Only DO Not Attach Compendium DO Not Attach Compendium, Do Not Delete/merge, [id number] 4 11:35:44 vagina l pathog ens panel, MARC+pr obe, vagina l fluid 2023 024 [facility], [address], [place], [address], 4 16:14:28 cytolo gy report , thin prep, smear or scrapi ng, cervic al or vagina l - brush and broom 2023 024 [facility], [address], [place], [address], 4 16:25:46 Referral None record ed. Procedures None record ed. Surgeries None record ed. Imaging US, obstet juan miguel, 1st trimes ter 2023 024 KAYY Alvarado [facility] Scheduling, [address] [place], [address], 4 15:35:54 US, pelvis , transa bdomin al + transv aginal 2023 024 blake Alvarado [facility] Scheduling, [address] [place], [address], 4 14:10:25 US, pelvis , transa bdomin al + transv aginal 2022 023 theresaneftali [place] [facility] (Radiology), [address] [facility] [place], [address], 4 10:22:55 Medication Orders Prenat al 28 mg iron-8 00 mcg tablet 2023 024 [id number], [address], [place], [place], [id number], 4 12:49:48 ketoco nazole 2 % topica l cream 2022 023 [facility] #[id number], [address], [place], [place], [id number], 4 12:54:06 Tri Femyno r (28) 0.18 mg(7)/ 0.215 mg(7)/ 0.25 mg(7)- 35 mcg tablet 2022 023 [email or web address] [id number], [address], [place], [place], [id number], 4 12:25:14 Patient TargetsNo targets recorded. Patient Instructions Encounter Date Encounter Id Patient Instructions Last Modified By Organization Details Last Modified Time 05/24/2023 [id number] A healthy lifestyle: care instructions fernstrn Not available 05/24/2023 10:19:05 12/27/2023 [id number] A healthy lifestyle: care instructions fernstrn Not available 12/27/2023 12:53:14 Reason for Referral None Reported. Results Created Date Observation Date Name Description Value Unit Range Abnormal Flag Note LastModifiedBy Organization Detail LastModifiedTime 03/30/20 24 04/01/2024 NUSWA B VAGIN ITIS PLUS (VG+) atopobium vaginae MODERA TE - 1 score Not Available [facility] ([facility]) [address] [facility], [place], [address], 04/01/2024 16:14:28 03/30/20 24 04/01/2024 NUSWA B VAGIN ITIS PLUS (VG+) bvab 2 LOW - 0 score Not Available [facility] ([facility]) [address] [facility], [place], [address], 04/01/2024 16:14:28 03/30/20 24 04/01/2024 NUSWA B VAGIN ITIS PLUS (VG+) megasphaera 1 LOW - 0 score Calcu late total score by azael bonner the 3 indiv idual bacte rial vagin osis (BV) marke r score s toget her. Total score is inter prete d as follo ws: Total score 0-1: Indic ates the absen ce of BV. Total score 2: Indet ermin ate for BV. Addit ional clini ken data shoul d be evalu ated to estab gatito a diagn osis. Total score 3-6: Indic ates the prese nce of BV. Not Available [facility] ([facility]) [address] [facility], [place], [address], 04/01/2024 16:14:28 03/30/20 24 04/01/2024 NUA B VAGIN ITIS PLUS (VG+) devon albicans, MARC NEGATI VE negati ve Not Available [facility] ([facility]) [address] [facility], [place], [address], 04/01/2024 16:14:28 03/30/20 24 04/01/2024 NUSWA B VAGIN ITIS PLUS (VG+) devon glabrata, MARC NEGATI VE negati ve Not Available [facility] ([facility]) [address] [facility], [place], [address], 04/01/2024 16:14:28 03/30/20 24 04/01/2024 NUSWA B VAGIN ITIS PLUS (VG+) trich vag by MARC NEGATI VE negati ve Not Available [facility] ([facility]) [address] [facility], [place], [address], 04/01/2024 16:14:28 03/30/20 24 04/01/2024 NUSWA B VAGIN ITIS PLUS (VG+) chlamydia trachomatis, MARC NEGATI VE negati ve Not Available [facility] ([facility]) [address] [facility], [place], [address], 04/01/2024 16:14:28 03/30/20 24 04/01/2024 NUSWA B VAGIN ITIS PLUS (VG+) neisseria gonorrhoeae, MARC NEGATI VE negati ve Not Available [facility] ([facility]) [address] [facility], [place], [address], 04/01/2024 16:14:28 03/30/20 24 03/31/2024 IGP, APTIM A HPV, RFX 16/18 ,45 HPV aptima NEGATI VE negati ve This nucle ic acid ampli ficat ion test detec ts fourt een high- risk HPV types (16,1 8,31, 33,35 ,39,4 5,51, 52,56 ,58,5 9,66, 68) witho ut diffe renti ation . Not Available [facility] ([facility]) [address] [facility], [place], [address], 04/04/2024 16:25:46 03/30/20 24 04/04/2024 IGP, APTIM A HPV, RFX 16/18 ,45 diagnosis: COMMEN T NEGAT TITI FOR INTRA EPITH ELIAL LESIO N OR MALIG ARIE . CELLU MAMIE HILARIO ES ASSOC IATED WITH INFLA MMATI ON ARE PRESE NT. THIS SPECI MEN WAS RESCR EENED PART OF OUR QUALI TY CONTR OL PROGR AM. Not Available [facility] ([facility]) [address] [facility], [place], [address], 04/04/2024 16:25:46 03/30/20 24 04/04/2024 IGP, APTIM A HPV, RFX 16/18 ,45 specimen adequacy: ANGEL Smith Satis facto ry for evalu ation . Endoc ervic al and/o r squam ous metap lasti c cells (endo cervi ken compo nent) are prese nt. Not Available [facility] ([facility]) [address] [facility], [place], [address], 04/04/2024 16:25:46 03/30/20 24 04/04/2024 IGP, APTIM A HPV, RFX 16/18 ,45 clinician provided ICD10: ANGEL Smith Z12.4 R10.2 Not Available [facility] ([facility]) [address] [facility], [place], [address], 04/04/2024 16:25:46 03/30/20 24 04/04/2024 IGP, APTIM A HPV, RFX 16/18 ,45 performed by: ANGEL Mack , Cytot echno logis t (ASCP ) Not Available [facility] ([facility]) [address] [place], [address], 04/04/2024 16:25:46 03/30/20 24 04/04/2024 IGP, APTIM A HPV, RFX 16/18 ,45 QC reviewed by: ANGEL weber, Cytot echno logis t (ASCP ) Not Available [facility] ([facility]) [address] [place], [address], 04/04/2024 16:25:46 03/30/20 24 04/04/2024 IGP, APTIM A HPV, RFX 16/18 ,45 . . Not Available [facility] ([facility]) [address] [place], [address], 04/04/2024 16:25:46 03/30/20 24 04/04/2024 IGP, APTIM A HPV, RFX 16/18 ,45 note: COMMEN T The Pap smear is a scree jacquie test desig kevin to aid in the detec tion of daisy ligna nt and malig nant condi tions of the uteri ne cervi x. It is not a diagn ostic proce dure and shoul d not be used as the sole means of detec ting cervi ken cance r. Both false -posi tive and false -nega tive repor ts do occur . Not Available [facility] ([facility]) [address] [facility], [place], [address], 04/04/2024 16:25:46 03/30/20 24 04/04/2024 IGP, APTIM A HPV, RFX 16/18 ,45 test methodology: COMM T This liqui d based ThinP rep(R ) pap test was scree kevin with the use of an image guide anupama gaston. Not Available [facility] ([facility]) [address] [facility], [place], [address], 04/04/2024 16:25:46 03/30/20 24 04/04/2024 IGP, APTIM A HPV, RFX 16/18 ,45 HPV genotype reflex COMM T Crite burke not met, HPV Genot ype not perfo rmed. Not Available [facility] ([facility]) [address] [place], [address], 04/04/2024 16:25:46 03/30/20 24 03/30/2024 urina lysis , dipst ick Leukocytes Negati ve Not Available In-Office Order Internal Use Only DO Not Attach Compendium DO Not Attach Compendium, Do Not Delete/merge, 03/30/2024 11:34:28 03/30/20 24 03/30/2024 urina lysis , dipst ick Nitrite negati ve Not Available In-Office Order Internal Use Only DO Not Attach Compendium DO Not Attach Compendium, Do Not Delete/merge, 03/30/2024 11:34:28 03/30/20 24 03/30/2024 urina lysis , dipst ick Urobilinogen .2 Not Available In-Of fice Order Internal Use Only DO Not Attach Compendium DO Not Attach Compendium, Do Not Delete/merge, 03/30/2024 11:34:28 03/30/20 24 03/30/2024 urina lysis , dipst ick Protein Negati ve Not Available In-Office Order Internal Use Only DO Not Attach Compendium DO Not Attach Compendium, Do Not Delete/merge, 03/30/2024 11:34:28 03/30/20 24 03/30/2024 urina lysis , dipst ick pH 5.5 Not Available In-Office Order Internal Use Only DO Not Attach Compendium DO Not Attach Compendium, Do Not Delete/merge, 03/30/2024 11:34:28 03/30/20 24 03/30/2024 urina lysis , dipst ick Blood Negati ve Not Available In-Office Order Internal Use Only DO Not Attach Compendium DO Not Attach Compendium, Do Not Delete/merge, 03/30/2024 11:34:28 03/30/20 24 03/30/2024 urina lysis , dipst ick Specific Ida 1.030 Not Available In-Off ice Order Internal Use Only DO Not Attach Compendium DO Not Attach Compendium, Do Not Delete/merge, 03/30/2024 11:34:28 03/30/20 24 03/30/2024 urina lysis , dipst ick Ketone Negati ve Not Available In-Office Order Internal Use Only DO Not Attach Compendium DO Not Attach Compendium, Do Not Delete/merge, 03/30/2024 11:34:28 03/30/20 24 03/30/2024 urina lysis , dipst ick Bilirubin Negati ve Not Available In-Office Order Internal Use Only DO Not Attach Compendium DO Not Attach Compendium, Do Not Delete/merge, 03/30/2024 11:34:28 03/30/20 24 03/30/2024 urina lysis , dipst ick Glucose Negati ve Not Available In-Office Order Internal Use Only DO Not Attach Compendium DO Not Attach Compendium, Do Not Delete/merge, [id number] 03/30/2024 11:34:28 03/30/20 24 03/30/2024 urina lysis , dipst ick Appearance Clear Not Available In-Offi ce Order Internal Use Only DO Not Attach Compendium DO Not Attach Compendium, Do Not Delete/merge, [id number] 03/30/2024 11:34:28 03/30/20 24 03/30/2024 urina lysis , dipst ick Color Yellow Not Available In-Office Order Internal Use Only DO Not Attach Compendium DO Not Attach Compendium, Do Not Delete/merge, 03/30/2024 11:34:28 03/30/20 24 03/30/2024 pregn george test, urine HCG negati ve Not Available In-Office Order Internal Use Only DO Not Attach Compendium DO Not Attach Compendium, Do Not Delete/merge, 03/30/2024 11:34:29 08/01/20 24 08/02/2024 HCG,B ETA SUBUN IT, QNT HCG,beta subunit,qnt, serum 61757 mIU/m L Femal e (Non- pregn ant) 0 - 5 (Post menop ausal ) 0 - 8 Femal e (Preg nant) Weeks of Gesta tion 3 6 - 71 4 10 - 750 5 217 - 7138 6 158 - 84332 7 2657 -1636 63 8 27261 -1495 71 9 33940 -5634 10 10 61516 -2983 77 12 00342 -3616 12 14 22332 - 90661 15 33715 - 51110 16 3178 - 08517 17 6920 - 83342 18 8080 - 12744 Resul ts confi rmed on dilut ion. Janeen ECLIA metho dolog y Not Available [facility] ([facility]) [address] [facility], [place], [address], 08/02/2024 16:16:14 08/01/20 24 08/01/2024 urina lysis , dipst ick Leukocytes Trace Not Available In-Offi ce Order Internal Use Only DO Not Attach Compendium DO Not Attach Compendium, Do Not Delete/merge, [id number] 08/01/2024 16:11:38 08/01/20 24 08/01/2024 urina lysis , dipst ick Nitrite negati ve Not Available In-Office Order Internal Use Only DO Not Attach Compendium DO Not Attach Compendium, Do Not Delete/merge, [id number] 08/01/2024 16:11:38 08/01/20 24 08/01/2024 urina lysis , dipst ick Urobilinogen .2 Not Available In-Of fice Order Internal Use Only DO Not Attach Compendium DO Not Attach Compendium, Do Not Delete/merge, [id number] 08/01/2024 16:11:38 08/01/20 24 08/01/2024 urina lysis , dipst ick Protein Negati ve Not Available In-Office Order Internal Use Only DO Not Attach Compendium DO Not Attach Compendium, Do Not Delete/merge, [id number] 08/01/2024 16:11:38 08/01/20 24 08/01/2024 urina lysis , dipst ick pH 5.5 Not Available In-Office Order Internal Use Only DO Not Attach Compendium DO Not Attach Compendium, Do Not Delete/merge, [id number] 08/01/2024 16:11:38 08/01/20 24 08/01/2024 urina lysis , dipst ick Blood Negati ve Not Available In-Office Order Internal Use Only DO Not Attach Compendium DO Not Attach Compendium, Do Not Delete/merge, [id number] 08/01/2024 16:11:38 08/01/20 24 08/01/2024 urina lysis , dipst ick Specific Ida 1.010 Not Available In-Off ice Order Internal Use Only DO Not Attach Compendium DO Not Attach Compendium, Do Not Delete/merge, [id number] 08/01/2024 16:11:38 08/01/20 24 08/01/2024 urina lysis , dipst ick Ketone Negati ve Not Available In-Office Order Internal Use Only DO Not Attach Compendium DO Not Attach Compendium, Do Not Delete/merge, [id number] 08/01/2024 16:11:38 08/01/20 24 08/01/2024 urina lysis , dipst ick Bilirubin Negati ve Not Available In-Office Order Internal Use Only DO Not Attach Compendium DO Not Attach Compendium, Do Not Delete/merge, [id number] 08/01/2024 16:11:38 08/01/20 24 08/01/2024 urina lysis , dipst ick Glucose Negati ve Not Available In-Office Order Internal Use Only DO Not Attach Compendium DO Not Attach Compendium, Do Not Delete/merge, [id number] 08/01/2024 16:11:38 08/01/20 24 08/01/2024 urina lysis , dipst ick Appearance Cloudy Not Available In-Offi ce Order Internal Use Only DO Not Attach Compendium DO Not Attach Compendium, Do Not Delete/merge, [id number] 08/01/2024 16:11:38 08/01/20 24 08/01/2024 urina lysis , dipst ick Color Yellow Not Available In-Office Order Internal Use Only DO Not Attach Compendium DO Not Attach Compendium, Do Not Delete/merge, [id number] 08/01/2024 16:11:38 08/01/20 24 08/01/2024 pregn george test, urine HCG positi ve Not Available In-Office Order Internal Use Only DO Not Attach Compendium DO Not Attach Compendium, Do Not Delete/merge, [id number] 08/01/2024 16:11:27 08/22/20 24 08/23/2024 URINE CULTU RE, ROUTI NE urine culture, routine FINAL REPORT Not Available [facility] ([facility]) [address] [facility], [place], [address], 08/24/2024 07:16:31 08/22/20 24 08/23/2024 URINE CULTU RE, ROUTI NE result 1 COMMEN T Cultu re shows less than 10,00 0 colon y formi ng units of bacte burke per sabino liter of urine . This colon y count is not gener ally consi dered to be clini villa signi fican t. Not Available [facility] ([facility]) [address] [facility], [place], [address], 08/24/2024 07:16:31 08/22/20 24 08/24/2024 CT, NG, TRICH VAG BY MARC chlamydia by MARC NEGATI VE negati ve Not Available [facility] ([facility]) [address] [place], [address], 08/25/2024 07:15:04 08/22/20 24 08/24/2024 CT, NG, TRICH VAG BY MARC gonococcus by MARC NEGATI VE negati ve Not Available [facility] ([facility]) [address] [facility], [place], [address], 08/25/2024 07:15:04 08/22/2008/24/2024 CT, NG, TRICH VAG BY MARC trich vag by MARC POSITI VE negati ve abnormal Not Available [facility] ([facility]) [address] [facility], [place], [address], 08/25/2024 07:15:04 08/22/2008/23/2024 HGB FRACT IONAT ION CASCA DE HGB F 0.0 % 0.0-2. 0 Not Available [facility] ([facility]) [address] [place], [address], 08/30/2024 07:15:41 08/22/20 24 08/23/2024 HGB FRACT IONAT ION CASCA DE HGB A 97.5 % 96.4-9 8.8 Not Available [facility] ([facility]) [address] [place], [address], 08/30/2024 07:15:41 08/22/20 24 08/23/2024 HGB FRACT IONAT ION CAS[place] DE HGB A2 2.5 % 1.8-3. 2 Not Available [facility] ([facility]) [address] [place], [address], 08/30/2024 07:15:41 08/22/20 24 08/23/2024 HGB FRACT IONAT ION CASCA DE HGB S 0.0 % 0.0 Not Available [facility] ([facility]) [address] [facility], [place], [address], 08/30/2024 07:15:41 08/22/20 24 08/23/2024 HGB FRACT IONAT ION CASCA DE interpretati on: COMMEN T Priscilla l hemog lobin prese nt; no hemog lobin varia nt or beta thala ssemi a ident ified . Note: Alpha thala ssemi a may not be detec roque by the Hgb Fract ionat ion [place] panel . If alpha thala ssemi a is suspe cted, [facility] offer s Alpha -Thal assem ia DNA Nan sis (#[id number]). Not Available [facility] ([facility]) [address] [facility], [place], [address], 08/30/2024 07:15:41 08/22/20 24 08/23/2024 INTER PRETA TION: interpretati on: Commen t Not infec roque with HCV unles s early or acute infec tion is suspe cted (whic h may be delay ed in an immun ocomp romis ed indiv idual ), or other evide nce exist s to indic ate HCV infec tion. Not Available [facility] ([facility]) [address] [facility], [place], [address], 08/30/2024 07:15:43 08/22/20 24 08/23/2024 HCV ANTIB KEM RFX TO QUANT PCR HCV Ab NON REACTI VE nonrea ctive Not Available [facility] ([facility]) [address] [facility], [place], [address], 08/30/2024 07:15:43 08/22/20 24 08/23/2024 TSH+F REE T4 TSH 1.050 uIU/m L 0.450- 4.500 Not Available [facility] ([facility]) [address] [facility], [place], [address], 08/30/2024 07:15:44 08/22/20 08/23/2024 TSH+F REE T4 T4,free(dire ct) 0.87 NG/dL 0.82-1 .77 Not Available [facility] ([facility]) [address] [facility], [place], [address], 08/30/2024 07:15:44 08/22/20 24 08/29/2024 INHER ITEST (R)CF / SMA PANEL genes COMMEN T 2 genes Not Available [facility] ([facility]) [address] [facility], [place], [address], 08/30/2024 07:15:46 08/22/2008/29/2024 INHER ITEST (R)CF / SMA PANEL ethnicity COMMEN T Not Provi ded Not Available [facility] ([facility]) [address] [facility], [place], [address], 08/30/2024 07:15:46 08/22/2008/29/2024 INHER ITEST (R)CF / SMA PANEL specimen type COMMEN T Whole Blood Not Available [facility] ([facility]) [address] [facility], [place], [address], 08/30/2024 07:15:46 08/22/20 24 08/29/2024 INHER ITEST (R)CF / SMA PANEL indication COMMEN T Makenzie er Test / Scree jacquie Not Available [facility] ([facility]) [address] [facility], [place], [address], 08/30/2024 07:15:46 08/22/20 24 08/29/2024 INHER ITEST (R)CF / SMA PANEL result: COMMEN T NEGAT TITI Not Available [facility] ([facility]) [address] [facility], [place], [address], 08/30/2024 07:15:46 08/22/20 24 08/29/2024 INHER ITEST (R)CF / SMA PANEL interpretati on COMMEN T Negat titi Resul ts Disor ders (Gene ) Resul t Inter preta tion Cysti c fibro sis NEGAT TITI This resul t reduc es, (CFTR ) but does not NM_00 0492. 4 elimi petra, the risk to be a makenzie er. Risk: NOT at an incre ased risk for an affec roque pregn george. Spina l muscu lar NEGAT TITI : 2 This resul t reduc es, atrop hy (SMN1 ) copie s of but does not NM_00 0344. 4 SMN1; elimi petra, the risk c.*3+ 80T>G to be a makenzie er. risk varia nt Risk: NOT at an not prese nt. incre ased risk for an affec roque pregn george. Not Available [facility] ([facility]) [address] [facility], [place], [address], 08/30/2024 07:15:46 08/22/20 24 08/29/2024 INHER ITEST (R)CF / SMA PANEL recommendati ons COMMEN T If the above resul t is posit titi, rosalio ic couns eling is recom demar d to discu ss the poten tial clini ken and/o r repro ducti ve impli catio ns, as well as recom menda tions for testi ng famil y membe rs and, when appli cable , this indiv idual 's partn er. Rosalio ic couns elichi servi mike are avail able. To acces s [facility] Rosalio ic Couns leandro soares e visit [email or web address] :[email or web address] [email or web address] [email or web address] -coun alexus bonner or call (183) -[facility] ([phone]). Not Available [facility] ([facility]) [address] [facility], [place], [address], 08/30/2024 07:15:46 08/22/20 24 08/29/2024 INHER ITEST (R)CF / SMA PANEL comments COMMEN T This inter preta tion is based on the clini ken infor matio n provi ded and the curre nt under stand ing of the molec ular rosalio ics of the disor nathan(s ) teste d. Infor alen weathers about the disor nathan(s ) teste d is avail able at [email or web address] :[email or web address]. Not Available [facility] ([facility]) [address] [facility], [place], [address], 08/30/2024 07:15:46 08/22/20 24 08/29/2024 INHER ITEST (R)CF / SMA PANEL methods/limi tations COMMEN T Next- gener ation Seque ncing (NGS) : Genom ic regio ns of inter est are selec roque using the [employer] ience (R) hybri dizat ion captu re metho d and seque nced via the [employer](R ) NGS platf orm. Seque ncing reads are align ed to the human genom e refer ence GRCh3 7/hg1 9 build . Regio ns of inter est inclu de codin g exons , intro n/exo n junct ions (typi villa +/- 20 nucle otide s) and addit ional genom ic regio ns with known signi fican t patho genic varia nts. Nan tical sensi tivit y is estim ated to be >99% for singl e nucle otide varia nts and small inser tions /cortes tions . Varia nt detec tion is perfo rmed by [facility] [employer] and in-ho use algor ithms . Singl e exon delet ions or dupli catio ns can be detec roque in the CFTR gene with estim ated overa ll nan tical sensi tivit y >99%. Preci se break point s are not repor roque. Singl e-exo n delet ions or dupli catio ns are not detec roque in some cases due to CNV size limit ation s, or due to isola roque data quali ty varia tion or intri nsic seque nce prope rties . Confi rmato ry testi ng by ortho gonal techn ologi es may inclu de Sange r seque ncing , or MLPA nan sis. Repor roque varia nts: Patho genic and likel y patho genic varia nts are repor roque for all tests . Benig n and likel y benig n varia nts are typic ally not repor roque. Varia nts of uncer tain signi fican ce are repor roque when inclu ded in the test speci ficat ion. Varia nts are speci fied using the numbe ring and nomen clatu re recom demar d by the Human Genom e Varia tion Socie ty (HGVS , http: //www .hgvs .org/ ). Varia nt class ifica tion and confi rmati on are consi stent with AC stand ards and guide lines (Rich ards, PMID: [id number]; Gowdin, PMID: [id number]). Detai led varia nt class ifica tion infor matio n and reeva luati on are avail able upon reque st. Spina l muscu lar atrop hy: The copy numbe r of SMN1 exon 7 is asses sed relat titi to inter nal stand neha refer ence genes by quant itati ve polym erase chain react ion (qPCR ). A mathe matic al algor ithm calcu lates 0, 1, 2 and 3 copie s with stati stica l confi dence . In speci mens and speci mens with 0 or 1 copie s, the prime r and probe catherine ng sites are seque nced to rule out varia nts that could inter fere with copy numbe r nan sis. SMN2 copy numbe r is asses sed by digit al dropl et PCR nan sis relat titi to an inter nal stand neha refer ence gene in sampl es with no copie s of SMN1. For makenzie er scree jacquie, when two copie s of SMN1 are detec roque, allel ic discr imina tion qPCR targe ting c.*3+ 80T>G in SMN1 is perfo rmed. Limit ation s: Techn ologi es used do not detec t germl ine mosai cism and do not rule out the prese nce of large chrom osoma l aberr ation s inclu ding rearr angem ents and gene fusio ns, or varia nts in regio ns or genes not inclu ded in this test, or possi ble inter /intr ageni c inter actio ns betwe en varia nts, or repea t expan sions . Varia nt class ifica tion and/o r inter preta tion may hilario e over time if more infor matio n becom es avail able. False posit titi or false negat titi resul ts may occur for reaso ns that inclu de: rare rosalio ic varia nts, sex chrom osome abnor malit ies, pseud ogene inter feren ce, blood trans fusio ns, bone marro w trans plant ation , somat ic or tissu e-spe cific mosai cism, misla beled sampl es, or delia eous repre senta tion of famil y relat ions [id number]|2025-03-05 07:30:24|2025-03-05 07:30:24|PM.OBDSVD||||"DS: Admitting Diagnosis Discharge Date 03/05/2025 Admitting Diagnosis Term DS: Discharge Diagnosis Discharge Diagnosis (1) Term delivered: Code(s): O80 - Encounter for full-term uncomplicated delivery Status: Acute OB - DS: Summary OB Procedures : None OB Procedures Intrapartum: Spontaneous Vag Delivery OB Procedures: : None Peripartum Data Laceration Description: Perineal - 2nd Degree Episiotomy description: None Procedures: Procedures Operation Date: 03/20/25 07:30 <No data on this case meets the specified criteria> Time Spent with Patient Time attestation: Total time spent providing and/or coordinating discharge services: Discharge Plan Discharge Discharging Clinician: Frank Gray Patient Disposition: Home Activity: pelvic rest Diet: regular Discharge Instructions: Education: Mom and Baby Guide Given to: Mother Follow-Up: Call your delivering provider's office for an appointment to be seen in: 1 Week Mom and baby should come to the [facility] for the follow-up appointment. Appointment Date/Time: March 06, 2025 at 11:00 am What to expect at your follow-up visit: Blood Pressure Check Physical Assessment Call [phone] if you are unable to keep your appointment time. BREAST CARE: * Wear a snug supportive bra. * For engorgement discomfort: Breast Feeding: * Apply warm moist washcloths * Express milk as needed to relieve engorgement * Wear loose clothing Bottle Feeding: * May apply ice packs * For sore nipples: * Identify correct latch-on * Apply warm moist washcloths before and after nursing * Air dry nipples after nursing * May apply Lansinoh cream to nipples ABDOMINAL INCISION: (if applicable) * Allow incision to air dry * Do NOT use lotions for powders on your incision * When showering, allow soap and water to run over the incision, but do not wash incision EPISIOTOMY/PERINEAL CARE: * Until bleeding stops, use your marcio bottle after urinating * Change your pad frequently throughout the day * You may take sitz baths several times a day (fill your bathtub with warm water and soak for 20 minutes.) Do NOT bathe in the water * No tub baths until seen by your physician - You may shower ACTIVITY: * Rest as much as possible. * Do not exercise or lift anything heavier than your baby (such as laundry or other children.) * Avoid stairs or driving as much as possible. * Do not put anything into the vagina. No douching, tampons, or sexual activity until seen by physician. NOTIFY PHYSICIAN IF YOU HAVE ANY QUESTIONS OR IF ANY OF THE FOLLOWING SYMPTOMS OCCUR: * If your episiotomy or incision becomes red, swollen, or more painful than what you have experienced in the hospital. * If your vaginal bleeding becomes foul smelling. * If your vaginal bleeding becomes more heavy than a period or if your bleeding changes from pink to bright red. However, you may pass an occasional walnut-sized clot once or twice for the first week . * If you experience a sharp, shooting pain in you calves. * If you discover a hard, reddened area on your breast or if you experience flu-like symptoms. DIET: * Eat regular, well-balanced meals. * Drink plenty of fluids daily. If , drink to thirst. Patient Instructions: Antibiotic Form, Vaginal Delivery (DC) Patient Language: Romanian Stand Alone Forms: General Discharge Information Follow-up/Referrals: Frank Gray MD [Physician] - Discharge Medications: Continued 28-800 mg-mcg tablet 1 tablet PO DAILY bupropion HCl [Wellbutrin XL] 300 mg tablet extended release 24 hr 300 mg PO DAILY Date of admission: 03/03/25 02:45 Primary Care Provider: Yfn,Leonora Martini Admitting Provider: Frank Gray Attending physician on admission: Frank Gray Condition: Stable"
--- NOTE | 2025-03-03 03:32 | LDADM ---
This patient, Tarah Carroll, was admitted to Labor/Delivery/Recovery 104 on 03/03/25 at 02:45. Plans for labor, pain management and were discussed with patient. Patient/family oriented to hospital policies and general routines including ID bracelet, bed and alarms, visiting hours, pain management, procedures, bathroom and other care routines, personal items, smoking policy, room service/diet and guest tray routines, security routines, and visiting hours. Patient/Family are encouraged to report perceived risks to care and to ask questions if they do not understand what they are told or what they should do. See OBIX for further documentation.
[2025-03-03 03:46] LABS: Basophils Percent Auto 0.3 % (0.2-1.2); Eosinophils Percent Auto 0.3 % (0-4.4); Hematocrit 37.7 % (37.0-47.0); Hemoglobin 12.5 g/dL (12.0-15.0); Immature Granulocyte Absolute 0.02 K/mm3 (0.00-0.031); Immature Granulocyte Percent A 0.3 % (0-0.5); Lymphocytes Absolute Auto 0.93 K/mm3 (0.9-3.2); Lymphocytes Percent Auto 12.1 % (18.3-44.2); Mean Corpuscular HGB Conc 33.2 g/dl (32-36); Mean Corpuscular Volume 84.3 fl (80-100); Monocytes Absolute Auto 0.4 K/mm3 (0.1-0.6); Monocytes Percent Auto 5.7 % (2.6-8.5); Neutrophils Absolute Auto 6.3 K/mm3 (1.3-6.7); Neutrophils Percent Auto 81.3 % (45.5-73.1); Platelet Count Result 195 k/mm3 (150-375); Red Blood Count 4.47 M/mm3 (4.2-5.4); Red Cell Distribution Width 13.9 % (11.5-14.5); White Blood Count 7.7 K/mm3 (4.5-10.0)
[2025-03-03 04:28] LABS: Syphilis IgG/IgM Antibody Negative (Negative)
[2025-03-03 04:41] LABS: HIV 1/2 Ab P24 Ag Result Negative (Negative)
[2025-03-03] MEDS: LACTATED RINGERS 1,000 ML 125 ML IV CONT ×2 (05:00→13:13)
[2025-03-03 07:01] LABS: OBXCEM ROM Plus Positive (Negative)
--- NOTE | 2025-03-03 07:19 | P.PNAN_ITS ---
Anes - Eval Pre Procedure Procedure: Operation Date: 03/20/25 07:30 Proposed Procedures Labor epidural Date/Time: 03/03/25 07:19 Surgeon: parish Preop Diagnosis: pain during labor Pre Op Diagnosis: SROM Patient Data Age: 29 Gender: F Height: 1.63 m Weight: 100 kg Last Vital Signs Temp 37.1 C 03/03/25 06:34 Pulse 86 03/03/25 06:36 BP 119/83 03/03/25 06:36 Allergies Allergy/AdvReac Type Severity Reaction Status Date / Time No Known Allergies Allergy Verified 03/03/25 06:29 Home Medications Medication Instructions Recorded Confirmed Type bupropion HCl 300 mg 24 hr tablet, 300 mg PO DAILY 02/21/25 03/03/25 History extended release (Wellbutrin XL) vit no.133-ferrous 1 tablet PO DAILY 02/21/25 03/03/25 History fumarate 28 mg-folic acid 800 mcg tablet () Laboratory Tests 03/03/25 03/03/25 03:10 03:40 WBC 7.7 K/mm3 (4.5-10.0) RBC 4.47 M/mm3 (4.2-5.4) Hgb 12.5 g/dL (12.0-15.0) Hct 37.7 % (37.0-47.0) MCV 84.3 fl (80-100) MCH 28.0 pg (26-34) MCHC 33.2 g/dl (32-36) RDW 13.9 % (11.5-14.5) Plt Count 195 k/mm3 (150-375) MPV 10.0 fl (7.4-10.4) Immature Gran % (Auto) 0.3 % (0-0.5) Neut % (Auto) 81.3 H % (45.5-73.1) Lymph % (Auto) 12.1 L % (18.3-44.2) [place] % (Auto) 5.7 % (2.6-8.5) Eos % (Auto) 0.3 % (0-4.4) Baso % (Auto) 0.3 % (0.2-1.2) Lymph # (Auto) 0.93 K/mm3 (0.9-3.2) [place] # (Auto) 0.4 K/mm3 (0.1-0.6) Eos # (Auto) 0.0 K/mm3 (0-0.3) Baso # (Auto) 0.0 K/mm3 (0.0-0.1) Abs Immat Gran (auto) 0.02 K/mm3 (0.00-0.031) Absolute Neuts (auto) 6.3 K/mm3 (1.3-6.7) Absolute Nucleated RBC 0.000 K/mm3 (0.0-0.012) Nucleated RBC % 0.0 % (0.0-0.2) Membranes Rupture Rom plus positive (Negative) Syphilis IgG/IgM Ab Negative (Negative) HIV 1&2 Ab/P24 Ag 4thGn Negative (Negative) Blood Type O Positive Antibody Screen Negative Patient hx anesthesia problems: none Family hx anesthesia problems: none Results Review: All pre-operative results and documents have been reviewed as part of the pre- operative evaluation. [facility] Past Medical History Medical History (Updated 03/03/25 @ 07:20 by Christine Menjivar CRNA) Anxiety Obesity (BMI 30-39.9) IUP (intrauterine ), incidental Family History Family History (Updated 02/21/25 @ 13:29 by Araceli Varghese RN) Father Acute myocardial infarction Social History Social History Smoking status: Never smoker Second hand tobacco smoke exposure: No Substance use: never Do You Feel Safe in your Home?: Yes Lack of Transportation: No Lack of Food: Never True Current Housing: I Have Housing Concerned About Future Housing: No Difficulty Paying Gas/Electric Bills: No Difficulty Paying for Meds: No Currently Unemployed: No Education: High School Diploma/GED Difficulty w/ Childcare or Family Care: No Spiritual care concerns: No Exam Day of Procedure 03/03/25 07:19
[2025-03-03] MEDS: buPROPion HCL XL (24 HR) 150 MG TABCR 300 MG PO (07:39)
--- NOTE | 2025-03-03 08:38 | WPDHPUPDATE1 ---
History and Physical Update Update Date/Time: 03/03/25 08:38 29-year-old primipara who was considering some primary delivery. She is in labor and will continue to Labor consider vaginal and re-evaluate this time/labor progresses. Reassuring status. Considering epidural. History and Physical has been reviewed, including an updated exam of the patient. There are NO changes in the patient's condition. Risks, benefits, and alternatives have been discussed and questions answered. Patient agrees to proceed with procedure.
[2025-03-03] MEDS: LACTATED RINGERS 1,000 ML 999 ML IV CONT (11:00)
[2025-03-03] MEDS: OXYTOCIN 30 UNITS/NS 500 ML 30 UNITS/500 ML BAG IV CONT (12:10)
[2025-03-03] MEDS: LORATADINE 10 MG TABLET PO (14:32)
[2025-03-03] MEDS: miSOPROStol 200 MCG TABLET 1000 MCG (16:17)
--- NOTE | 2025-03-03 16:24 | PM.OBPRVD ---
OB - Vaginal Delivery Note Procedure Delivery date: 03/03/25 Delivery augmentation: Pitocin Delivery monitor: External FHT and Internal Uterine Route of delivery: Episiotomy description: None Laceration Description: Perineal - 2nd Degree Delivery repair: vicryl Quantitative Blood Loss (ml): 700 Anesthesia type: Epidural Disposition: Floor Complications: No immediate complications
[2025-03-03] MEDS: OXYTOCIN 30 UNITS/NS 500 ML 30 UNITS/500 ML BAG 125 UNITS IV CONT (16:30)
[2025-03-03] MEDS: ONDANSETRON INJ 4 MG/2 ML VIAL IV PUSH (17:29)
[2025-03-03] MEDS: IBUPROFEN 600 MG TABLET PO (20:33)
[2025-03-04] VITALS (8 sets, daily range): BP systolic 104–111; BP diastolic 66–67; PULSE 76–111; RESP 16–18; TEMP 36.4–36.7; O2SAT 97–100
[2025-03-04 05:35] LABS: Hematocrit 30.8 % (37.0-47.0); Hemoglobin 10.2 g/dL (12.0-15.0)
[2025-03-04] MEDS: DOCUSATE SODIUM 100 MG CAPSULE PO ×3 (08:00→19:48)
[2025-03-04] MEDS: buPROPion HCL XL (24 HR) 150 MG TABCR 300 MG PO (08:00)
[2025-03-04] MEDS: MULTIVIT/MIN/PREN/FOL AC/IRON TABLET 1 TAB PO (08:00)
[2025-03-04] MEDS: IBUPROFEN 600 MG TABLET PO (08:00)
--- NOTE | 2025-03-04 08:43 | P.PNOB_ITS ---
OB - PN: Subj Subjective Date/time seen: 03/04/25 08:43 Patient comments: no complaints, pain well controlled, incisional pain, tolerating diet and flatus present OB - PN: Obj Data Labs 03/04/25 04:18 Labs: Laboratory Results - last 24 hr 03/04/25 04:18 Hgb 10.2 L Hct 30.8 L OB - PN A/P Plan day: 1 Plan: routine care Comments: No problems, routine care Time Spent With Patient Time: Total time spent is greater than 50% in coordination of care (as documented) at patient's floor/unit and/or counseling patient: Exam 2 Const: General: comfortable, no acute distress and alert Resp: Effort & Inspection: normal respiratory effort Auscultation: no crackles, no rales and no rhonchi Cardio: Rate: regular rate Heart sounds: no click, no murmurs and no rubs GI: Inspection: non-distended GI Palp: No Tenderness to palpation present (GI) Auscultation: normal bowel sounds Other: Incision - CDI Extrem: General: normal to inspection, no pedal edema and no calf tenderness
--- NOTE | 2025-03-04 13:01 | WPDANLDPN2 ---
Anes-Prog Note L&D Date/Time: 03/04/25 13:01 Neuro status: Neuro function grossly intact. Cardiovascular status: normal Respiratory status: normal Airway patency: baseline Mental status: baseline Post-Op hydration status: normal Vital Signs: Last Vital Signs Temp 36.4 C 03/04/25 08:00 Pulse 76 03/04/25 07:48 Resp 18 03/04/25 08:00 BP 111/67 03/04/25 07:48 Pulse Ox 98 03/04/25 07:47 O2 Del Method Room Air 03/04/25 08:00 Pain score (VAS): 0 I/O: Intake & Output 03/03/25 03/04/25 03/04/25 23:59 07:59 15:59 Intake Total 407.9 Output Total 1575 Balance -1167.1 Post-procedural complaints: none Patient feedback: Patient satisfied with anesthetic care.
[2025-03-04] MEDS: ACETAMINOPHEN 325 MG TABLET 650 MG PO (19:03)
--- NOTE | 2025-03-05 07:30 | P.PNOB_ITS ---
OB - PN: Subj Subjective Date/time seen: 03/05/25 07:30 Patient comments: no complaints, pain well controlled and tolerating diet OB - PN: Obj Data Labs 03/04/25 04:18 OB - PN A/P Plan day: 2 Plan: routine care and discharge home Time Spent With Patient Time: Total time spent is greater than 50% in coordination of care (as documented) at patient's floor/unit and/or counseling patient: Exam 2 Const: General: comfortable and no acute distress Resp: Effort & Inspection: normal respiratory effort Auscultation: no rales, no rhonchi and no wheezes Cardio: Rate: regular rate Heart sounds: no click, no murmurs and no rubs GI: GI Palp: Yes Soft to palpation and No Tenderness to palpation present (GI) Auscultation: normal bowel sounds Extrem: General: normal to inspection, no pedal edema and no calf tenderness
--- NOTE | 2025-03-05 07:30 | P.DS_ITS ---
DS: Admitting Diagnosis Discharge Date 03/05/2025 Admitting Diagnosis Term DS: Discharge Diagnosis Discharge Diagnosis (1) Term delivered: Code(s): O80 - Encounter for full-term uncomplicated delivery Status: Acute OB - DS: Summary OB Procedures : None OB Procedures Intrapartum: Spontaneous Vag Delivery OB Procedures: : None Peripartum Data Laceration Description: Perineal - 2nd Degree Episiotomy description: None Procedures: Procedures Operation Date: 03/20/25 07:30 <No data on this case meets the specified criteria> Time Spent with Patient Time attestation: Total time spent providing and/or coordinating discharge services: Discharge Plan Discharge Discharging Clinician: Frank Gray Patient Disposition: Home Activity: pelvic rest Diet: regular Discharge Instructions: Education: Mom and Baby Guide Given to: Mother Follow-Up: Call your delivering provider's office for an appointment to be seen in: 1 Week Mom and baby should come to the [facility] for the follow-up appointment. Appointment Date/Time: March 06, 2025 at 11:00 am What to expect at your follow-up visit: Blood Pressure Check Physical Assessment Call [phone] if you are unable to keep your appointment time. BREAST CARE: * Wear a snug supportive bra. * For engorgement discomfort: Breast Feeding: * Apply warm moist washcloths * Express milk as needed to relieve engorgement * Wear loose clothing Bottle Feeding: * May apply ice packs * For sore nipples: * Identify correct latch-on * Apply warm moist washcloths before and after nursing * Air dry nipples after nursing * May apply Lansinoh cream to nipples ABDOMINAL INCISION: (if applicable) * Allow incision to air dry * Do NOT use lotions for powders on your incision * When showering, allow soap and water to run over the incision, but do not wash incision EPISIOTOMY/PERINEAL CARE: * Until bleeding stops, use your marcio bottle after urinating * Change your pad frequently throughout the day * You may take sitz baths several times a day (fill your bathtub with warm water and soak for 20 minutes.) Do NOT bathe in the water * No tub baths until seen by your physician - You may shower ACTIVITY: * Rest as much as possible. * Do not exercise or lift anything heavier than your baby (such as laundry or other children.) * Avoid stairs or driving as much as possible. * Do not put anything into the vagina. No douching, tampons, or sexual activity until seen by physician. NOTIFY PHYSICIAN IF YOU HAVE ANY QUESTIONS OR IF ANY OF THE FOLLOWING SYMPTOMS OCCUR: * If your episiotomy or incision becomes red, swollen, or more painful than what you have experienced in the hospital. * If your vaginal bleeding becomes foul smelling. * If your vaginal bleeding becomes more heavy than a period or if your bleeding changes from pink to bright red. However, you may pass an occasional walnut- sized clot once or twice for the first week . * If you experience a sharp, shooting pain in you calves. * If you discover a hard, reddened area on your breast or if you experience flu- like symptoms. DIET: * Eat regular, well-balanced meals. * Drink plenty of fluids daily. If , drink to thirst. Patient Instructions: Antibiotic Form, Vaginal Delivery (DC) Patient Language: Nepali Stand Alone Forms: General Discharge Information Follow-up/Referrals: Frank Gray MD [Physician] - Discharge Medications: Continued 28-800 mg-mcg tablet 1 tablet PO DAILY bupropion HCl [Wellbutrin XL] 300 mg tablet extended release 24 hr 300 mg PO DAILY Date of admission: 03/03/25 02:45 Primary Care Provider: Yfn,Leonora Martini Admitting Provider: Frank Gray Attending physician on admission: Frank Gray Condition: Stable
[2025-03-05] MEDS: buPROPion HCL XL (24 HR) 150 MG TABCR 300 MG PO (07:43)
[2025-03-05] MEDS: IBUPROFEN 600 MG TABLET PO (07:43)
[2025-03-05] MEDS: MULTIVIT/MIN/PREN/FOL AC/IRON TABLET 1 TAB PO (07:44)
[2025-03-05] MEDS: DOCUSATE SODIUM 100 MG CAPSULE PO (07:44)
[2025-03-05 07:46] VITALS: PULSE 84; O2SAT 99
[2025-03-05 07:47] VITALS: BP 135/66; PULSE 75; RESP 16; TEMP 36.7
[2025-03-06 11:21] VITALS: BP 124/82; PULSE 98; RESP 18; TEMP 36.9; O2SAT 100
== END 2025-03-05 09:30 | disposition home or self-care (01) | DRG 807 ==
LOC: ANHLDR 03:16 → ANHOBPP 19:05
PROVIDERS: Admitting Provider Obstetrics & Gynecology; PCP Nurse Practitioner; Visit Provider Obstetrics & Gynecology
DX: O69.81X0 Labor and delivery complicated by cord around neck, without compression, not applicable or unspecified (principal); Z37.0 Single live birth; Z3A.37 37 weeks gestation of pregnancy; O70.1 Second degree perineal laceration during delivery
CPT/HCPCS: 36415; 84112; 85014; 85018; 85025; 86593; 86703; 86850; 86900; 86901; A9270; G0432; J2405; J2590; J2795; J7120